=== PATIENT | female | born 1955 | race Caucasian/White ===

== ENCOUNTER 2018-02-06 08:49 | Emergency (ER) | payer OTHER ==
[~2018-02-06] VITALS: Ht 160 cm; Wt 77.1 kg
[~2018-02-06 08:49] MED LIST: ALLEGRA ALLERGY60 MG PO; LOTRISONE LOTIO30 ML TP; MEDROL4 MG PO; NORFLEX100MG PO
== END 2018-02-06 13:03 | disposition home or self-care (01) ==
LOC: ER 08:49
DX: J06.9 Acute upper respiratory infection, unspecified (principal)

== ENCOUNTER 2018-08-04 09:02 | Outpatient (CLI) | payer OTHER | END 2018-08-04 09:09 | disposition home or self-care (01) | LOC: LAB 09:02 | DX: Z86.000 Personal history of in-situ neoplasm of breast (principal); E78.00 Pure hypercholesterolemia, unspecified; Z00.01 Encounter for general adult medical examination with abnormal findings ==

== ENCOUNTER 2018-08-04 11:12 | Outpatient (CLI) | payer OTHER | END 2018-08-04 15:43 | disposition home or self-care (01) | LOC: MAMO-SONO 11:12 | DX: N60.11 Diffuse cystic mastopathy of right breast (principal); N60.12 Diffuse cystic mastopathy of left breast; Z86.000 Personal history of in-situ neoplasm of breast; Z12.39 Encounter for other screening for malignant neoplasm of breast; Z12.31 Encounter for screening mammogram for malignant neoplasm of breast ==

== ENCOUNTER → 2018-08-04 | Outpatient (CLI) | payer OTHER | END | disposition home or self-care (01) | LOC: NUCLEAR 08:57 | DX: M25.50 Pain in unspecified joint (principal); M81.0 Age-related osteoporosis without current pathological fracture; Z13.820 Encounter for screening for osteoporosis ==

== ENCOUNTER 2022-07-17 11:53 | Outpatient (CLI) | payer OTHER | END 2022-07-17 11:59 | disposition home or self-care (01) | LOC: RAD 11:53 | PROVIDERS: ATTEND Specialist | DX: I63.9 Cerebral infarction, unspecified (principal); J45.991 Cough variant asthma ==

== ENCOUNTER 2023-02-02 08:22 | Outpatient (CLI) | payer OTHER | END 2023-02-02 08:34 | disposition home or self-care (01) | LOC: RAD 08:22 | PROVIDERS: ATTEND Specialist | DX: M70.71 Other bursitis of hip, right hip (principal) ==

== ENCOUNTER 2023-07-03 08:24 | Outpatient (CLI) | payer OTHER | END 2023-07-03 09:12 | disposition home or self-care (01) | LOC: MRI 08:24 | PROVIDERS: ATTEND Psychiatry & Neurology Clinical Neurophysiology | DX: G30.0 Alzheimer's disease with early onset (principal) | CPT/HCPCS: 70551 ==